=== PATIENT | male | born 1970 | race Caucasian/White ===

== ENCOUNTER 2018-04-01 05:34 | Emergency (ER) | payer OTHER ==
[~2018-04-01] VITALS: Ht 177.8 cm; Wt 81.7 kg
[~2018-04-01 05:34] MED LIST: NORCO 5-325 TA1 EACH PO; NORCO 7.5-3251 EACH PO
[2018-04-01 05:43] VITALS: BP 162/109
== END 2018-04-01 06:12 | disposition home or self-care (01) ==
LOC: M.ERS 05:34
DX: F19.10 Other psychoactive substance abuse, uncomplicated (principal); F15.10 Other stimulant abuse, uncomplicated; I10 Essential (primary) hypertension; F17.210 Nicotine dependence, cigarettes, uncomplicated; F10.99 Alcohol use, unspecified with unspecified alcohol-induced disorder